=== PATIENT | male | born 1965 | race Caucasian/White ===

== ENCOUNTER 2017-02-20 18:30 | Emergency (ER) | payer OTHER ==
[~2017-02-20] VITALS: Ht 167.6 cm; Wt 88.9 kg
[2017-02-20 18:33] VITALS: BP 155/92
[2017-02-20] MEDS ORDERED: KETOROLAC 60 MG/2 ML VIAL IM ONE (19:15)
--- NOTE | 2017-02-20 19:15 | NUR ---
CHANTE, PLACED IN BED OFF [facility]
--- NOTE | 2017-02-20 19:20 | NUR ---
REPORT RECEIVED FROM NATALIIA CONRAD
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
--- NOTE | 2017-02-20 19:35 | NUR ---
PT TO XRAY VIA W/C IN STABLE CONDITION.
[2017-02-20 21:40] VITALS: BP 130/84
--- NOTE | 2017-02-20 21:40 | NUR ---
Patient discharged with v/s stable. Written and verbal after care instructions given and explained. Patient alert, oriented and verbalized understanding of instructions. Ambulatory with steady gait. All questions addressed prior to discharge. ID band removed. Patient advised to follow up with PMD. Rx of MOTRIN 800MG, NORCO 5/325MG, VALIUM 5MG given. Patient educated on indication of medication including possible reaction and side effects. Opportunity to ask questions provided and answered.
== END 2017-02-20 21:40 | disposition home or self-care (01) ==
LOC: MED 18:30
DX: M54.6 Pain in thoracic spine (principal); Z90.49 Acquired absence of other specified parts of digestive tract
CPT/HCPCS: 72080; 96372; 99284; J1885